=== PATIENT | female | born 1955 | race Caucasian/White ===

== ENCOUNTER 2018-06-27 07:31 | Day surgery (SDC) | END 2018-06-27 14:40 | disposition home or self-care (01) ==

== ENCOUNTER 2018-08-15 07:04 | Day surgery (SDC) | END 2018-08-15 13:38 | disposition home or self-care (01) ==

== ENCOUNTER 2018-08-26 23:02 | Emergency (ER) | END 2018-08-27 02:28 | disposition home or self-care (01) ==

== ENCOUNTER 2019-04-04 08:56 | Day surgery (SDC) | payer OTHER ==
[~2019-04-04] VITALS: Ht 172.7 cm; Wt 145.3 kg
[~2019-04-04 08:56] MED LIST: CHLO25TA2 PO; EPHEDrine 25 MG/5 ML SYG ONE; ERGO2000 PO; EXEN2PEN SQ; FLUT16SP17 NASAL; HYDR-4011 PO; IBUP-1542 PO; LOSA25TA12 PO; METF500T24 PO
[2019-04-04] MEDS ORDERED: SOD CHLORIDE 0.9% 1,000 ML IV SCH (09:00)
[2019-04-04 10:59] VITALS: Ht 172.7 cm; Wt 145.3 kg
[2019-04-04 11:00] VITALS: BP 141/62; PULSE 64; RESP 16
[2019-04-04] MEDS ORDERED: BIOT50002 SL (11:09)
[2019-04-04] MEDS ORDERED: MULTI PO (11:09)
--- NOTE | 2019-04-04 11:39 | PREAC ---
Date/Time of Note Date/Time of Note DATE: 04/04/19 TIME: 11:37 Anesthesia Eval and Record Evaluation Time Pre-Procedure Interview DATE: 04/04/19 TIME: 11:37 Age 63 Sex female NPO: 8 hrs Preoperative diagnosis left breast cancer Planned procedure needle localization left partial mastectomy Past Medical History Past Medical History: Includes Cardio: HTN Endo: Diabetes GI: Morbid obesity Surgery & Anesthesia Issues No known issue Meds Anticoagulation: No Beta [place] within 24 hr: No Reason Beta [place] not given: Pt. not on B-[place] Reported Medications Biotin (Biotin) 5,000 Mcg Tab.subl, 5000 MCG SL DAILY 04/04/19 Multivitamins* (Theragran*) 1 Tab Tab, 1 TAB PO DAILY, TAB 04/04/19 Fluticasone Propionate* (Fluticasone Propionate* Nasal) 50 Mcg/Stryker - 16 Gm Stryker.susp, 1 SPRAY NASAL DAILY, #1 BOTTLE TO EACH NOSTRIL 06/27/18 Chlorthalidone* (Chlorthalidone*) 25 Mg Tablet, 6.25 MG PO DAILY, TAB 06/27/18 Metformin Hcl* (Metformin Hcl*) 500 Mg Tablet, 500 MG PO WITH BREAKFAST DINNE, #60 TAB 06/27/18 Losartan Potassium* (Losartan Potassium*) 25 Mg Tablet, 25 MG PO DAILY, TAB 06/27/18 Discontinued Reported Medications Ergocalciferol (Vitamin D2) (VITAMIN D2) 2,000 Unit Tablet, 2000 UNIT PO DAILY, TAB 06/27/18 Exenatide Microspheres (Bydureon Pen) 2 Mg/0.65 Ml Pen.injctr, 2 MG SQ Q7D, EACH 06/27/18 Discontinued Scripts Hydrocodone/Acetaminophen (Buckley 5-325 Tablet) 1 Each Tablet, 1 TAB PO Q6H PRN for SEVERE PAIN LEVEL 7-10, #7 TAB Prov:BELKIS MADRIGAL NP 08/27/18 Ibuprofen* (Motrin*) 600 Mg Tab, 600 MG PO Q6H PRN for PAIN AND OR ELEVATED TEMP, #30 TAB Prov:BELKIS MADRIGAL VP GENETIC 08/27/18 Current Medications Sodium Chloride 1,000 ml @ 75 mls/hr [id number] IV ; Start 04/04/19 at 09:00; Stop 04/04/19 at 22:19 Meds reviewed: Yes Allergies Coded Allergies: cephalexin (Verified Allergy, Unknown, 04/04/19) lisinopril (Verified Allergy, Unknown, SWELLING OF TONGUE, 04/04/19) Allergies Reviewed: Yes Labs/Studies Labs Reviewed: Reviewed by anesthesiologist test: N/A Studies: ECG (sr), CXR (nl) Pre-procedure Exam Last vitals Vital Signs Date Temp Pulse Resp B/P (MAP) Pulse Ox O2 O2 Flow FiO2 Time Delivery Rate 04/04/19 96.9 64 16 141/62 96 Room Air 11:00 (88) Airway: Adequate mouth opening Mallampati: Mallampati I Teeth: Abnormal (partial denture) Lung: Normal Heart: Normal ASA Physical Status ASA physical status: 5 Emergency: None Planned Anesthetic General/MAC: ETT Planned Pain Management Parenteral pain med Pre-operative Attestations Prior to commencing anesthesia and surgery, the patient was re-evaluated, there was verification of: *The patient's identity *The results of appropriate recent lab work and preoperative vital signs *The above evaluation not changing prior to induction *Anesthetic plan, risk benefits, alternative and complications discussed with patient/family; questions answered; patient/family understands, accepts and wishes to proceed. BENIGNO PARRA MD April 04, 2019 11:39
[2019-04-04] MEDS ORDERED: ONDANSETRON 4 MG INJ IV PRN (12:00)
[2019-04-04] MEDS ORDERED: OXYCODONE/ACETAMINOPHEN (5/325) TAB PO PRN ×2 (12:00)
[2019-04-04] MEDS ORDERED: LABETALOL HCL 20MG INJ IV PRN (12:00)
[2019-04-04] MEDS ORDERED: hydrALAzine 20 MG INJ IV PRN (12:00)
[2019-04-04] MEDS ORDERED: HYDROmorphONE 1 MG/5 ML IV SYRINGE IV PRN ×2 (12:00)
[2019-04-04] MEDS ORDERED: FENTAnyl 50 MCG/ML VIAL IV PRN ×3 (12:00)
[2019-04-04] MEDS ORDERED: MEPERIDINE 25 MG INJ IV PRN (12:00)
[2019-04-04] MEDS ORDERED: DIPHENHYDRAMINE 50 MG INJ IV PRN (12:00)
[2019-04-04] MEDS ORDERED: MIDAZOLAM 1 MG/ML 2 ML INJ ONE (12:04)
[2019-04-04] MEDS ORDERED: CEFAZOLIN 1 GM INJ ONE ×2 (12:10→12:31)
[2019-04-04] MEDS ORDERED: GLYCOPYRROLATE 0.4 MG INJ ONE (12:10)
[2019-04-04] MEDS ORDERED: PROPOFOL 20 ML ONE ×2 (12:10→13:16)
[2019-04-04] MEDS ORDERED: ROCURONIUM 50 MG INJ ONE (12:10)
[2019-04-04] MEDS ORDERED: METOCLOPRAMIDE 10 MG INJ ONE (12:10)
[2019-04-04] MEDS ORDERED: ONDANSETRON 4 MG INJ ONE (12:10)
[2019-04-04] MEDS ORDERED: NEOSTIGMINE 3 MG/3 ML SYRINGE ONE (12:10)
[2019-04-04] MEDS ORDERED: HYDROmorphONE 2 MG/ML SYG ONE (12:30)
--- NOTE | 2019-04-04 13:14 | SIPON ---
Date/Time of Note Date/Time of Note DATE: 04/04/19 TIME: 13:13 Operative Report Preoperative Diagnosis Recurrent left breast cancer Postoperative Diagnosis Same Operation/Procedure Performed Left needle directed partial mastectomy Surgeon see signature line learning support assistant Dr Alvarez Anesthesia: general Estimated blood loss: 10 - 50 ml's Transfusion Required none Specimen Left partial mastectomy specimen Grafts/Implants none Complications none AFSHAN ÁLVAREZ MD April 04, 2019 13:14
[2019-04-04] MEDS ORDERED: HYDROCODONE/APAP (7.5/325) TAB PO PRN (13:30)
[2019-04-04 13:31] VITALS: BP 123/50; PULSE 75; RESP 18
[2019-04-04 13:36] VITALS: BP 104/45; PULSE 72; RESP 13
[2019-04-04 13:41] VITALS: BP 107/49; PULSE 72; RESP 12
[2019-04-04] MEDS: HYDROmorphONE 1 MG/5 ML IV SYRINGE IV PRN ×2 (14:00→14:15)
[2019-04-04 16:14] VITALS: BP 110/57; PULSE 62; RESP 18
--- NOTE | 2019-04-04 16:17 | OPR ---
DATE OF OPERATION: 04/04/2019 PREOPERATIVE DIAGNOSIS: Recurrent cancer, left breast. POSTOPERATIVE DIAGNOSIS: Recurrent cancer, left breast. PROCEDURE: Left needle localization partial mastectomy. ANESTHESIA: General. ANESTHESIOLOGIST: Vane Tarango MD SURGEON: Abdiaziz Oneal MD LICENSED THERAPIST: Anthony Alvarez MD INDICATIONS FOR PROCEDURE: The patient is a 63-year-old female who was previously diagnosed with inv asive cancer of her left breast. She completed her original surgery with negative margins, had compl eted chemotherapy. Followup surveillance mammogram showed residual suspicious calcifications not in the same area of the previous tumor bed but in the same quadrant. The patient was told that the lidya salcido recommendation would be for her to undergo mastectomy; however, she wanted to try to save her br east; therefore, she agreed to a left upper quadrant quadrantectomy in which the recurrent tumor and the previous tumor site would be removed. She was then scheduled for surgery. DESCRIPTION OF PROCEDURE: On the morning of surgery, the patient presented to [facility] where she underwent localization of the lesion performed by attending radiologist, Dr. Jairon Mayfield. Subsequently, she was brought to the operating theater, placed under general a nesthesia. The left breast was prepped and draped in usual sterile fashion. A curvilinear incision was made, incorporating a portion of the previous incisional scar in the region of the previously severiano jose localization wire. Subcutaneous tissue was dissected with cautery. Skin edges were elevated wit h skin hooks and very wide circumferential dissection of the breast parenchyma associated with the wi re and attempting to encompass the previous biopsy site took place with cautery all the way down to t he pectoralis major fascia. Specimen was then elevated, transected, oriented and sent for radiograph ic confirmation of capture. Capture was confirmed. The specimen was then sent for permanent patholo gic analysis. The wound was irrigated. Minimal bleeding was controlled with cautery. A #10 Palestinian Rodolfo-Doe drain was then brought through the left mid axillary line, cut to size and laid within the wound cavity. It was secured in place with 2-0 nylon suture in a standard fashion. The skin was then reapproximated with a deep dermal layer of 4-0 Vicryl sutures in interrupted fashion, followed by final skin approximation with 5-0 PDS sutures in subcuticular fashion. Benzoin and Steri-Strips w ere then applied. The patient tolerated procedure well. Estimated blood loss was 30 mL. There were no complications and the patient was transported in stable condition to the recovery room where circ umferential compression dressing was applied. Dictated By: ABDIAZIZ ONEAL MD TL/TORI Conf#: [id number] DID#: [id number]
--- NOTE | 2019-04-04 18:36 | PAC ---
Date/Time of Note Date/Time of Note DATE: 04/04/19 TIME: 18:36 Post-Anesthesia Notes Post-Anesthesia Note Last documented vital signs Vital Signs Date Temp Pulse Resp B/P (MAP) Pulse Ox O2 O2 Flow FiO2 Time Delivery Rate 04/04/19 96.9 62 18 110/57 95 Room Air 16:14 (74) 04/04/19 6.0 13:41 Activity: WNL Respiratory function: WNL Cardiovascular function: WNL Mental status: Baseline Pain reasonably controlled: Yes Hydration appropriate: Yes Nausea/Vomiting absent: No BENIGNO PARRA MD April 04, 2019 18:36
== END 2019-04-04 15:20 | disposition home or self-care (01) ==
LOC: SDS 08:56
PROVIDERS: ATTEND Surgery Surgical Oncology
DX: C50.912 Malignant neoplasm of unspecified site of left female breast (principal); I10 Essential (primary) hypertension; E11.9 Type 2 diabetes mellitus without complications; Z79.84 Long term (current) use of oral hypoglycemic drugs
CPT/HCPCS: 19301; 82962; 88307; J0690; J1170; J2250; J2405; J2710; J2765; Z7512; Z7610